=== PATIENT | female | born 1955 | race Caucasian/White ===

== ENCOUNTER 2017-08-22 21:47 | Emergency (ER) | payer SELFPAY ==
[2017-08-22 22:39] VITALS: BP 126/76; PULSE 80; RESP 14; TEMP 97.9; O2SAT 96
--- NOTE | 2017-08-22 23:06 | C.PDOC ---
History Of Present Illness 61 year old female is brought to the ED by EMS after being found in [facility]. Patient reports she is homeless, has chronic back pain. Patient is only c.o damp feet. Patient denies SI/HI, hallucinations, fever, chills, CP, SOB. Chief Complaint (Nursing): Back Pain History Per: Patient, EMS History/Exam Limitations: no limitations Onset/Duration Of Symptoms: Hrs Current Symptoms Are (Timing): Still Present Quality Of Discomfort: "Pain" Severity: None Previous Symptoms: Back Pain Associated Symptoms: None Exacerbating Factor(s): Nothing Recent travel outside of the [place]: No Additional History Per: Patient Past Medical History Reviewed: Historical Data, Nursing Documentation, Vital Signs Vital Signs: Last Vital Signs Temp 97.9 F 08/22/17 22:33 Pulse 80 08/22/17 22:33 Resp 14 08/22/17 22:33 BP 126/76 08/22/17 22:33 Pulse Ox 96 08/22/17 23:06 - Medical History PMH: Back Problems Surgical History: No Surg Hx Family History: States: Unknown Family Hx - Social History Hx Alcohol Use: No Hx Substance Use: No - Immunization History Hx Tetanus Toxoid Vaccination: No Hx Influenza Vaccination: No Hx Pneumococcal Vaccination: No Review Of Systems Constitutional: Negative for: Fever, Chills Eyes: Negative for: Vision Change Cardiovascular: Negative for: Chest Pain Respiratory: Negative for: Shortness of Breath Musculoskeletal: Positive for: Back Pain Skin: Negative for: Rash Neurological: Negative for: Weakness, Numbness Physical Exam - Physical Exam Appears: Non-toxic, No Acute Distress Skin: Normal Color, Warm, Dry Head: Atraumatic, Normacephalic Eye(s): bilateral: Normal Inspection Oral Mucosa: Moist Neck: Normal ROM, Supple Chest: Symmetrical Cardiovascular: Rhythm Regular Respiratory: Normal Breath Sounds, No Rales, No Rhonchi, No Wheezing Gastrointestinal/Abdominal: Soft, No Tenderness, No Guarding, No Rebound Extremity: Normal ROM, No Tenderness, Capillary Refill (< 2 seconds), No Swelling, Other (B/L feet with masearetd tissue between toes, no bug infestation consistent with athletes foot) Pulses: Left Dorsalis Pedis: Normal, Right Dorsalis Pedis: Normal Neurological/Psych: Oriented x3, Normal Speech Gait: Steady ED Course And Treatment O2 Sat by Pulse Oximetry: 96 (ON RA) Pulse Ox Interpretation: Normal Medical Decision Making Medical Decision Making: homeless, no acute issues some minor atheletes feet dry sox given. Disposition Doctor Will See Patient In The: Office Counseled Patient/Family Regarding: Studies Performed, Diagnosis - Disposition Referrals: Alcoholics Anonymous [Outside] [facility] [Outside] [facility] [Outside] [facility] [Outside] [facility] [Outside] [facility] [Outside] Disposition: HOME/ ROUTINE Disposition Time: 23:06 Condition: GOOD Additional Instructions: seek nightly retirement placement wear dry clean sox daily follow-up with outpatient psych services as needed Instructions: [employer] Forms: [email or web address] (Slovak) - Clinical Impression Clinical Impression: Homeless single person - Scribe Statement The provider has reviewed the documentation as recorded by the Scribe Wesly Chaudhry All medical record entries made by the Scribe were at my direction and personally dictated by me. I have reviewed the chart and agree that the record accurately reflects my personal performance of the history, physical exam, medical decision making, and the department course for this patient. I have also personally directed, reviewed, and agree with the discharge instructions and disposition.
== END 2017-08-22 23:30 | disposition home or self-care (01) ==
LOC: C.ER 21:47
DX: Z59.0 Homelessness (principal)